=== PATIENT | female | born 1990 | race Caucasian/White ===

== ENCOUNTER 2020-02-07 13:04 | Emergency (ER) | payer BC, OTHER, SELFPAY ==
[2020-02-07 13:12] VITALS: BP 119/80; PULSE 124; RESP 19; TEMP 36.7; O2SAT 98
[2020-02-07 13:57] LABS: Basophils Percent Auto 0.4 % (0.2-1.2); Hematocrit 39.1 % (37.0-47.0); Hemoglobin 13.5 g/dL (12.0-15.0); Immature Granulocyte Absolute 0.01 K/mm3 (0.00-0.031); Immature Granulocyte Percent A 0.2 % (0-0.5); Lymphocytes Absolute Auto 1.38 K/mm3 (0.9-3.2); Lymphocytes Percent Auto 25.1 % (18.3-44.2); Mean Corpuscular HGB Conc 34.5 g/dl (32-36); Mean Corpuscular Hemoglobin 29.8 pg (26-34); Mean Corpuscular Volume 86.3 fl (80-100); Mean Platelet Volume 9.9 fl (7.4-10.4); Monocytes Absolute Auto 0.4 K/mm3 (0.1-0.6); Monocytes Percent Auto 6.4 % (2.6-8.5); Neutrophils Absolute Auto 3.7 K/mm3 (1.3-6.7); Neutrophils Percent Auto 67.9 % (45.5-73.1); Platelet Count Result 165 k/mm3 (150-375); Red Blood Count 4.53 M/mm3 (4.2-5.4); Red Cell Distribution Width 12.9 % (11.5-14.5); White Blood Count 5.5 K/mm3 (4.5-10.0)
[2020-02-07 13:58] LABS: Add Urine Microscopic? NO; Appearance Urine Clear (Clear); Bilirubin Urine Negative (Negative); Blood Urine Negative (Negative); Color Urine Colorless (Yellow); Glucose Urine UA Negative (Negative); Ketones Urine Negative (Negative); Leukocyte Esterase Ur Negative LEU/UL (Negative); Nitrate Urine Negative (Negative); Protein Urine Negative (Negative); Urobilinogen Urine Negative mg/dL (<2.0)
--- NOTE | 2020-02-07 14:05 | ED.ABDPAIN ---
HPI - Abdominal Pain General Chief Complaint: Unspecified Stated Complaint: etoh detox Time Seen by Provider: 02/07/20 13:26 Source: patient Mode of arrival: ambulatory Limitations: no limitations History of Present Illness HPI narrative: Patient is a 29-year-old female who presents with anxiety depression and alcohol intoxication noting that she drank vodka this morning and typically drinks a pint a day. Patient lives at home with her family. Patient has been in an argument with her boyfriend last night which led to drinking noting that she had drank this morning and presents intoxicated. Patient denies vomiting diarrhea injury or trauma or recent illness. Patient with similar occurrences in the past and notes history of binge drinking denies any history of seizures Related Data Allergies Allergy/AdvReac Type Severity Reaction Status Date / Time cefuroxime Allergy Unknown Unknown Verified 02/07/20 13:18 lodoxamide Allergy Unknown Nausea Verified 02/07/20 13:18 Review of Systems Review of Systems: All systems reviewed & are unremarkable except as noted in HPI and below PMFSH Past Medical History Medical History Alcohol withdrawal syndrome without complication Alcoholic dependence syndrome Social History Social History Smoking status: Never smoker Gender identity (if verbalized by the patient): Female Exam Narrative: Exam Narrative: GENERAL: Well-appearing, well-nourished, and in no acute distress. HEAD: Normocephalic, atraumatic. EYES: PERRLA and EOMI. ENT: Nares clear, no rhinorrhea or epistaxis. Mucous membranes moist. Oropharynx without tonsillar hypertrophy exudate or other lesions. NECK: Supple. No adenopathy or masses. CHEST: Clear to auscultation. No respiratory distress. No wheezes rales or rhonchi HEART: Regular rate and rhythm. No murmur heard. Normal peripheral pulses. ABDOMEN: Soft, nontender, nondistended EXTREMITIES: Normal range of motion. No edema. SKIN: Warm, dry, no rash. NEURO: No focal deficits. Alert and oriented x3. Cranial nerves II through XII grossly intact PSYCH: Normal mood and affect. Course Course Emergency Course: Patient in the room in no distress aware of case findings treatment plan and diagnosis agreeing to follow-up as directed or to return if symptoms worsen or concerns Consultations Consultation #1: Primary care made aware of the patient's condition will be seen in clinic acutely Date: 02/07/20 Time: 15:48 Vital Signs Vital signs: Vital Signs Temperature 98.1 F 02/07/20 13:12 Pulse Rate 124 H 02/07/20 13:12 Respiratory Rate 19 02/07/20 13:12 Blood Pressure 119/80 02/07/20 13:12 Pulse Oximetry 98 02/07/20 13:12 Temperature 98.1 F 02/07/20 13:12 Pulse Rate 124 H 02/07/20 13:12 Respiratory Rate 19 02/07/20 13:12 Blood Pressure 119/80 02/07/20 13:12 Pulse Oximetry 98 02/07/20 13:12 MDM - Abdominal Pain MDM Narrative Medical decision making narrative: Patient with longstanding history of alcohol abuse was hydrated in the emergency department in the room in no distress has been able to ambulate will be discharged home with family will help facilitate getting the patient back into primary care for further evaluation of her alcohol abuse. Patient was also given AA and alcohol resources. Family and patient provided with reasons to return Lab Data Result diagrams: 02/07/20 13:47 02/07/20 13:47 Labs: Lab Results 02/07/20 02/07/20 02/07/20 Range/Units 13:47 13:47 13:47 WBC 5.5 (4.5-10.0) K/mm3 RBC 4.53 (4.2-5.4) M/mm3 Hgb 13.5 (12.0-15.0) g/dL Hct 39.1 (37.0-47.0) % MCV 86.3 (80-100) fl MCH 29.8 (26-34) pg MCHC 34.5 (32-36) g/dl RDW 12.9 (11.5-14.5) % Plt Count 165 (150-375) k/mm3 MPV 9.9 (7.4-10.4) fl Immature Gran % (Auto) 0.2 (0-0
[2020-02-07 14:07] LABS: Specific Grav Ur 1.004 (1.001-1.035)
[2020-02-07] MEDS: DEXTROSE 5%/LACTATED RINGERS 1,000 ML 1000 ML (14:08)
[2020-02-07] MEDS: LORAZEPAM INJ 2 MG/ML VIAL 1 MG IV PUSH (14:08)
[2020-02-07 14:09] LABS: Lipase 78 U/L (23-300)
[2020-02-07 14:11] LABS: Alanine Aminotransferase 74 U/L (4-35); Albumin Level 4.3 g/dL (3.5-5.1); Alkaline Phosphatase 66 U/L (38-126); Aspartate Amino Transferase 94 U/L (14-36); Bilirubin,Total 0.8 mg/dL (0.2-1.3); Blood Urea Nitrogen 8 mg/dL (7-17); Carbon Dioxide 24 mmol/L (22-30); Chloride 108 mmol/L (98-107); Estimated Glomerular Filt Rate > 60; Glucose 88 mg/dL (65-105); Potassium 3.8 mmol/L (3.4-5.0); Sodium 140 mmol/L (137-145)
--- NOTE | 2020-02-07 14:23 | PC.NURSE ---
patient reports a history of etoh abuse and had a 3 month sobority. has been drinking for the past 7 days. 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 patient asks to hug this nurse at on point of assessment and then accuses this nurse of not caring at a later point.
--- NOTE | 2020-02-07 14:55 | PC.NURSE ---
Patient attempting to get out of bed at this time, patient removed IV without RN present. EDP aware and states to not attempt IV access again and to contact her family.
[2020-02-07] MEDS: LORAZEPAM 0.5 MG TABLET PO (16:01)
[2020-02-07 16:04] VITALS: BP 122/78; PULSE 80; RESP 18; O2SAT 99
== END 2020-02-07 16:06 | disposition home or self-care (01) ==
PROVIDERS: Emergency Medicine Emergency Medical Services; Emergency Provider Emergency Medicine; PCP Family Medicine
DX: F10.20 Alcohol dependence, uncomplicated (principal); Y90.9 Presence of alcohol in blood, level not specified
CPT/HCPCS: 36415; 80053; 81003; 81025; 83690; 85025; 96365; 99284; A9270; J2060; J3411; J3475; J7050; J7121

== ENCOUNTER 2020-05-01 18:45 | Emergency (ER) | payer OTHER, SELFPAY ==
--- NOTE | ~2020-05-01 | XR_ITS ---
EXAMINATION: XR elbow RT min 3V EXAM DATE: 05/01/2020 20:05 INDICATION: Initial encounter following injury, with pain of the right elbow. TECHNIQUE: Right elbow frontal, lateral with flexion, and oblique projections obtained and reviewed. There is no prior study for comparison. FINDINGS: Right elbow anterior humeral line intact. There are no acute fractures or dislocations daina ntified. There is no subcutaneous gas. The soft tissue is unremarkable. There are no radiopaque f oreign bodies. IMPRESSION: 1. XR elbow RT min 3V exam without acute osseous findings. Reviewed, dictated and finalized at location A.
--- NOTE | ~2020-05-01 | CT_ITS ---
EXAMINATION: CT brain wo con EXAM DATE: 05/01/2020 19:56 INDICATION: Head injury, fall. TECHNIQUE: Spiral CT of the head was performed without contrast. Axial, coronal and sagittal images were reviewed. The dose-length product (DLP) for this examination was 605.33 mGy-cm. The exposure w as tailored according to patient size, and iterative reconstruction (ASIR) was used as additional dos e reduction technique. There is no prior study for comparison. FINDINGS: There is no acute intraparenchymal hemorrhage. No evidence of intraparenchymal brain mass lesion. No evidence of acute infarction. There is no mass effect or midline shift. The ventricles are normal in size. There are no extra-axial collections. There are no acute calvarial fractures. T he orbits are unremarkable. Soft tissue is unremarkable. The visualized sinuses and mastoid air carlotta ls are well aerated. IMPRESSION: 1. Unremarkable head CT examination. Reviewed, dictated and finalized at location A.
[2020-05-01 18:52] VITALS: BP 121/82; PULSE 95; RESP 17; TEMP 36.8; O2SAT 99
--- NOTE | 2020-05-01 19:10 | PC.NURSE ---
Pt attempting to provide urinae sample at this time
[2020-05-01 19:34] VITALS: BP 136/95; PULSE 98; RESP 15; O2SAT 99
--- NOTE | 2020-05-01 19:40 | ED.HEATRA ---
HPI - Head Injury General Chief complaint: Head Injury Stated complaint: Fall/drinking Time Seen by Provider: 05/01/20 19:13 Source: patient Mode of arrival: ambulatory Limitations: no limitations History of Present Illness HPI Narrative: 30 year old female with history of alcoholism who presents for evaluation by her mother for a head injury. She reports patient has been binge drinking for the past 5 days. She reports she feel patient on her bed with blood in her hair. She was unsure if what she hit her head on and she was found to have a right eyebrow laceration. PAtient reports her last tetanus was last year. She only complaints of right elbow pain. . Related Data Home Medications Medication Instructions Recorded Confirmed spironolactone 100 mg tablet 100 mg PO DAILY 02/08/20 Allergies Allergy/AdvReac Type Severity Reaction Status Date / Time cefuroxime Allergy Unknown Unknown Verified 05/01/20 19:01 lodoxamide Allergy Unknown Nausea Verified 05/01/20 19:01 Review of Systems Review of Systems: All systems reviewed & are unremarkable except as noted in HPI and below Constitutional: Constitutional: Denies chills and Denies fever(s) Cardiovascular: Cardiovascular: Denies chest pain Respiratory: Respiratory: Denies cough and Denies dyspnea Gastrointestinal: Gastrointestinal: Denies nausea and Denies vomiting Neurologic: Reports headache(s) Psychiatric: Psychiatric: Reports anxiety COUNT INCLUDES THE [facility] Social History Social History Smoking status: Never smoker Gender identity (if verbalized by the patient): Female Exam Const: General: alert Orientation/consciousness: patient oriented x3 HENMT: Head: normocephalic and other (right eye brow laceration, bleeding controlled) General nose exam: Normal external nose present Face and sinus: face symmetric Throat: posterior oropharynx normal Eyes: Pupils: Equal, round and reactive pupils present EOM: EOMs intact bilaterally Neck: Neck: normal visual inspection Chest: Chest palpation & inspection: normal inspection of the chest Resp: Effort & Inspection: normal respiratory effort and no retractions Auscultation: clear to auscultation bilaterally Cardio: Rate: regular rate Rhythm: regular rhythm Heart sounds: no murmurs GI: GI Palp: Yes Soft to palpation, No Tenderness to palpation present (GI), No Guarding due to palpation present (GI) and No Rigid due to palpation Back/Spine/Pelvis: Back: no CVA tenderness Skin: General skin exam: normal color Rashes: no rashes Neuro: General: patient oriented x3 and moves all extremities Cranial nerves: Yes CN's II-XII intact bilaterally Course Vital Signs Vital signs: Vital Signs Temperature 98.2 F 05/01/20 18:52 Pulse Rate 95 05/01/20 18:52 Respiratory Rate 17 05/01/20 18:52 Blood Pressure 121/82 05/01/20 18:52 Pulse Oximetry 99 05/01/20 18:52 Temperature 97.5 F L 05/01/20 21:54 Pulse Rate 68 05/01/20 21:54 Respiratory Rate 16 05/01/20 21:54 Blood Pressure 113/88 05/01/20 21:54 Pulse Oximetry 100 05/01/20 21:54 Procedures Laceration Laceration 1: Date: 05/01/20 Time: 21:41 Site: face (right eye brow) Size (cm): 3 Description: linear Depth: simple, single layer Local Anesthetic: lidocaine 1% and with epi Amount of anesthesia used (mL): 2 Pre-repair: wound explored ====== Skin Level ====== Skin layer closed with: other (fast absorbing gut) Size (cm): 5-0 Number of sutures: 6 ====== Subcutaneous Layer ====== ====== Muscle Layer ====== ====== Tendon Layer ====== MDM - Head Injury Imaging Data Radiologist's impression: ITS Impressions Head CT 05/01/20 19:57 IMPRESSION: 1. Unremarkable head CT examination. Elbow X-Ray 05/01/20 20:09 IMPRESSION: 1. XR elbow RT min 3V
[2020-05-01 21:00] VITALS: BP 120/89; PULSE 91; RESP 20; O2SAT 99
[2020-05-01] MEDS: LORazepam 0.5 MG TABLET PO (21:50)
[2020-05-01 21:54] VITALS: BP 113/88; PULSE 68; RESP 16; TEMP 36.4; O2SAT 100
== END 2020-05-01 21:56 | disposition home or self-care (01) ==
PROVIDERS: Emergency Provider General Practice; PCP Family Medicine
DX: F10.20 Alcohol dependence, uncomplicated (principal); S01.111A Laceration without foreign body of right eyelid and periocular area, initial encounter; M25.521 Pain in right elbow; W19.XXXA Unspecified fall, initial encounter
CPT/HCPCS: 12013; 70450; 73080; 99284; A9270

== ENCOUNTER 2023-09-09 08:47 | Outpatient (CLI) | payer BC, SELFPAY ==
--- NOTE | ~2023-09-09 | US_ITS ---
EXAMINATION: US pelvic complete w TV DATE: 09/09/2023 09:14 INDICATION: Left lower quadrant pain TECHNIQUE: Multiple transabdominal and endovaginal sonographic images of the pelvis were obtained. COMPARISON: None. FINDINGS: The uterus measures 8.2 x 4.2 x 3.3 cm. The endometrial complex measures 3 mm. 3 times a da y is present in expected position. The right ovary measures 3.3 x 2.4 x 3.1 cm. The left ovary measur es 2.6 x 2.2 x 2.5 cm. There is normal vascular flow in the ovaries. There is no free fluid in the pe lvis. IMPRESSION: 1. No sonographic correlate for the patient's symptoms. Reviewed, dictated and finalized at location F. P COLLECTOR
== END 2023-09-09 08:48 ==
PROVIDERS: PCP Family Medicine; Visit Provider Nurse Practitioner Family
DX: R10.32 Left lower quadrant pain (principal)
CPT/HCPCS: 76830; 76856

== ENCOUNTER 2025-03-20 10:01 | Outpatient (CLI) | payer OTHER, SELFPAY ==
--- NOTE | ~2025-03-20 | CT_ITS ---
EXAMINATION: CTA chest PE protocol DATE: 03/20/2025 10:58 CDT INDICATION: Chest pain TECHNIQUE: Computed tomographic angiography (CTA) of the chest was performed with 100 mL Omnipaque-35 0 intravenous contrast. The dose-length product was 149.97 mGy-cm. Maximum intensity projection 3D-re constructions of the aorta and other arteries were constructed by the technologist on a separate work station. COMPARISON: None. FINDINGS/OBSERVATIONS: PULMONARY ARTERIES: No filling defect is identified within the main or proximal pulmonary artery. The main pulmonary artery is not enlarged. THORACIC AORTA: No aneurysmal dilatation or dissection is present. The great vessels are intact LUNGS: Trace dependent atelectasis. The remainder of the lungs are clear. MEDIASTINUM: No morphologically suspicious or pathologically enlarged lymph nodes are identified with in the mediastinum or bilateral axilla. BONES OF THE CHEST: No acute fracture. No degenerative disease. No lytic or blastic lesions. HEART: The heart is of normal size, without pericardial effusion. IMPRESSION: No pulmonary embolus. No thoracic aortic dissection. Trace dependent atelectasis. The lungs are otherwise clear. Reviewed, dictated and finalized at location A.
== END 2025-03-20 10:02 | disposition home or self-care (01) ==
PROVIDERS: PCP Family Medicine; Visit Provider Student in an Organized Health Care Education/Training Program
DX: R07.89 Other chest pain (principal)
CPT/HCPCS: 71275; Q9967